=== PATIENT | male | born 1960 | race Caucasian/White ===

== ENCOUNTER 2016-11-17 09:46 | Emergency (ER) | payer MEDICAID ==
[2016-11-17] MEDS ORDERED: Sodium Chloride 0.9% 1,000 ML IV SCH (10:00)
[2016-11-17 10:12] VITALS: BP 132/80
--- NOTE | 2016-11-17 11:43 | EDM.PDOC ---
[id number] LOW KIDNEY FUNCTION Time Seen by Provider: 11/17/16 10:20 Source of Information: Reports: Patient, Family, Provider History Limitations: Reports: No Limitations - History of Present Illness INITIAL COMMENTS - FREE TEXT/NARRATIVE: 56-year-old male who has had generalized malaise, weakness, intermittent fevers over the past several weeks and into the urgent care clinic for some routine labs and evaluation. Tick disease studies were drawn as well as a CMP and CBC. The patient was started on antibiotics and was asked to follow up, however after leaving his creatinine returned 2.4 and BUN was 40 so he was asked to come to the emergency room for further treatment. He's had no nausea or vomiting. Onset: Unknown/Unsure Severity: Mild Associated Symptoms: Reports: Fever/Chills, Loss of Appetite - Related Data Allergies Allergy/AdvReac Type Severity Reaction Status Date / Time No Known Allergies Allergy Verified 11/17/16 10:20 Home Meds: Home Meds Omeprazole 40 mg PO DAILY 11/17/16 [History] Past Medical History Gastrointestinal History: Reports: GERD - Infectious Disease History Infectious Disease History: Reports: Chicken Pox - Past Surgical History GI Surgical History: Reports: Appendectomy Social & Family History - Tobacco Use Smoking Status *Q: Never Smoker - Caffeine Use Caffeine Use: Reports: None - Recreational Drug Use Recreational Drug Use: No ED ROS GENERAL - Review of Systems Review Of Systems: See Below Constitutional: Reports: Fever, Chills, Malaise, Weakness, Weight Loss HEENT: Reports: No Symptoms Respiratory: Reports: No Symptoms (A lot of times before this woman is appendicitis. This is an arm). Denies: Shortness of Breath Cardiovascular: Denies: Chest Pain, Palpitations Endocrine: Reports: Fatigue GI/Abdominal: Denies: Abdominal Pain, Diarrhea : Reports: No Symptoms Musculoskeletal: Reports: Muscle Pain (Generalized aches) Skin: Reports: No Symptoms Neurological: Reports: Headache (Intermittent) ED EXAM, GENERAL - Physical Exam Exam: See Below Exam Limited By: No Limitations General Appearance: Alert, No Apparent Distress Eye Exam: Bilateral Eye: Normal Inspection Respiratory/Chest: No Respiratory Distress Cardiovascular: Regular Rate, Rhythm GI/Abdominal: Non-Tender Extremities: Normal Inspection. No: Pedal Edema Neurological: Alert, Oriented Skin Exam: Warm, Dry Course - Vital Signs Last Recorded V/S: Last Vital Signs Temp 97.9 F 11/17/16 10:11 Pulse 59 L 11/17/16 11:56 Resp 16 11/17/16 10:11 BP 132/80 11/17/16 11:56 Pulse Ox 98 11/17/16 10:11 - Orders/Labs/Meds Labs: Laboratory Tests 11/17/16 Range/Units 11:00 Urine Color Yellow Urine Appearance Cloudy Urine pH 6.0 (4.5-8.0) Ur Specific [employer] 1.015 (1.008-1.030) Urine Protein Negative (NEGATIVE) mg/dL Urine Glucose (UA) Normal (NEGATIVE) mg/dL Urine Ketones Negative (NEGATIVE) mg/dL Urine Occult Blood Moderate (NEGATIVE) Urine Nitrite Negative (NEGAITVE) Urine Bilirubin Negative (NEGATIVE) Urine Urobilinogen Normal (NORMAL) mg/dL Ur Leukocyte Esterase Large (NEGATIVE) Urine RBC 5-10 H (0-5) Urine WBC 20-30 H (0-5) Ur Epithelial Cells Not seen Amorphous Sediment Rare Urine Bacteria Rare Urine Mucus Not seen Meds: Medications Discontinued Medications Generic Name Dose Route Start Last Admin Trade Name Sudhirq PRN Reason Stop Dose Admin Sodium Chloride 1,000 mls @ 999 mls/hr 11/17/16 10:00 11/17/16 10:00 Normal Saline IV 999 mls/hr ASDIRECTED [facility] Administration - Re-Assessments/Exams Free Text/Narrative Re-Assessment/Exam: 11/17/16 11:45 Patient was given 1 L of normal saline bolus. He is going to start the antibiotic as directed, and I encouraged him to recheck in 4 or 5 days for another creatinine and BUN. He can return anytime sooner if worsening or concerns. He also needs to make sure he stays hydrated. A UA was obtained and showed no proteinuria or glucosuria, there was some WBCs and RBCs. Specific gravity was 1.015 Departure - Departure Time of Disposition: 12:00 Disposition: Home, Self-Care 01 Condition: Good Clinical Impression: Dehydration, moderate - Discharge Information Instructions: Dehydration, Adult, [id number] Referrals: Patrick Bardales MD [Primary Care Provider] - Forms: ED Department Discharge Care Plan Goals: Push fluids, increase activity as tolerated and recheck labs next week as discussed. Take antibiotic as prescribed. Return anytime sooner if worsening or concerns.
== END 2016-11-17 12:01 | disposition home or self-care (01) ==
LOC: JP.ED 09:46
DX: E86.0 Dehydration (principal); K21.9 Gastro-esophageal reflux disease without esophagitis; Z90.49 Acquired absence of other specified parts of digestive tract; Z79.899 Other long term (current) drug therapy
CPT/HCPCS: 81001; 96360; 99285; J7040

== ENCOUNTER 2016-12-14 08:38 | Day surgery (SDC) | payer MEDICAID ==
[2016-12-14] MEDS ORDERED: Dextrose 5%-Lactated Ringers 1,000 ML IV SCH (09:15)
[2016-12-14] MEDS ORDERED: Glycopyrrolate 0.2 MG/ML 2 ML SDV IVPUSH ONE (09:15)
[2016-12-14] MEDS ORDERED: Propofol 200 MG/20 ML SDV ONE (11:00)
[2016-12-14] MEDS ORDERED: fentaNYL 100 MCG/2 ML SDV ONE (11:01)
[2016-12-14] MEDS ORDERED: Midazolam 1 MG/ML 2 ML SDV ONE (11:01)
[2016-12-14 12:49] VITALS: BP 117/83
--- NOTE | 2016-12-19 08:32 | OR ---
DATE OF PROCEDURE: 12/14/2016 PREOPERATIVE DIAGNOSES: 1. Epigastric discomfort. 2. Indications for screening colonoscopy. POSTOPERATIVE DIAGNOSES: 1. Antral gastritis and duodenitis. 2. Normal colonoscopic exam. OPERATIVE PROCEDURES: 1. Upper GI endoscopy with antral biopsies for CLOtest. 2. Flexible colonoscopy. ANESTHESIA: IV sedation. INDICATION FOR PROCEDURE: This 56-year-old male is presenting with some ongoing epigastric pain with occasionally associated nausea. By history, he does have some reflux disease, but this is not presently significantly symptomatic. He presently is on Prilosec 40 mg a day. It is notable that he takes ibuprofen with a total dose, it sounds like, around 600 mg a day. He also meets indications for screening colonoscopy. The plan will be to proceed with an upper and lower endoscopy with biopsies and/or polypectomies as indicated. Potential risks including bleeding and perforation were discussed, and the patient wishes to proceed. DETAILS OF PROCEDURE: The patient was taken to the operating room and placed in a left lateral decubitus position. IV sedation was administered, after which the upper GI endoscope was passed orally through the length of the esophagus, into the stomach with retroflexion view of the fundus, thereafter through the pyloric channel and into the junction of the third and fourth portions of the duodenum. Findings included normal hypopharynx, larynx, upper esophageal sphincter, and esophageal body. At the EG junction, no significant inflammation was present. There was no upward migration of the gastroesophageal junction, mucosal line, and there was no significant hiatal hernia. Within the proximal stomach, there was a small amount of retained bile within the distal body and antrum. There was diffuse, fairly pronounced gastritis. This inflammatory change continued into the duodenum, but beyond the duodenal bulb it normalized. There were no ulcers or erosions within either the stomach or the duodenum, but there were fairly intense gastritis and duodenitis. At this point, biopsies were obtained from the antrum and sent for CLOtest for H. pylori. Minimal bleeding from the biopsy sites was seen, and the procedure then concluded with withdrawal of the scope. Attention was then taken to the colonoscopy. Initial digital rectal exam was performed and was unremarkable. Colonoscope was then passed into the rectum with retroflexion revealing uncomplicated hemorrhoidal columns. The scope was then eventually passed to the cecum. The prep was fairly good. There were some liquid and solid stools obscuring small portions of the mucosal surface, but otherwise exam appeared to be reasonably complete. Overall, there were no abnormalities, no diverticula, no areas of colitis, and no polyps or other signs of neoplasia. The scope was then withdrawn, and the procedure then concluded. I suspect the patient's gastritis maybe related to the ibuprofen use. We will switch him over to Celebrex 200 mg a day and have him discontinue the ibuprofen. He otherwise will continue the present omeprazole dose. Without any family history of colon neoplasia or personal history of polyps, the next colonoscopy should likely be scheduled in 10 years. The patient will be following up with Dr. Bardales in [facility] in 2 to 3 weeks to see how he is doing with regard to the symptoms. One option, if he continues to have the epigastric discomfort, would be to add something like Carafate or try some other nonsteroidal anti-inflammatory medications for the arthritis, but I suspect he will likely do fairly well with the Celebrex and that would be more effective than something like Tylenol for his arthritic symptoms. Kade Allison MD /[id number]
== END 2016-12-14 13:00 | disposition home or self-care (01) ==
LOC: JP.SDS 08:38
PROVIDERS: ATTEND Surgery
DX: Z12.11 Encounter for screening for malignant neoplasm of colon (principal); K29.50 Unspecified chronic gastritis without bleeding
CPT/HCPCS: 43239; 45378; 87081; J2250; J2704; J3010; J7042; J3490

== ENCOUNTER 2020-12-16 16:14 | Emergency (ER) | payer SELFPAY ==
[2020-12-16 16:24] VITALS: BP 152/84; PULSE 61
[2020-12-16] MEDS ORDERED: Ketorolac 30 MG/ML SDV IM ONE (16:35)
--- NOTE | 2020-12-16 16:38 | EDM.PDOC ---
ED HPI GENERAL MEDICAL PROBLEM - General Chief Complaint: Gastrointestinal Problem Stated Complaint: ABD PAIN Time Seen by Provider: 12/16/20 16:31 Source of Information: Reports: Patient, Family, RN Notes Reviewed History Limitations: Reports: No Limitations - History of Present Illness INITIAL COMMENTS - FREE TEXT/NARRATIVE: 60-year-old gentleman presents emergency department day complaint of abdominal pain, he states it came on suddenly sharp and stabbing constant in nature it is predominantly in the right lower quadrant does radiate to the back he has had a past surgical history of appendicitis there is no nausea no vomiting no shortness of breath no chest pain Right Lower Abdomen Pain Score (Numeric/FACES): 9 - Related Data Allergies Allergy/AdvReac Type Severity Reaction Status Date / Time No Known Allergies Allergy Verified 12/16/20 16:32 Home Meds: Home Meds Omeprazole 40 mg PO DAILY 11/17/16 [History] Ibuprofen 200 mg PO Q6HR PRN 12/12/16 [History] predniSONE 20 mg PO DAILY 12/14/16 [History] Tamsulosin HCl [Flomax] 0.4 mg PO DAILY #20 capsule 12/16/20 [Rx] Past Medical History Gastrointestinal History: Reports: GERD Musculoskeletal History: Reports: Arthritis - Infectious Disease History Infectious Disease History: Reports: Chicken Pox - Past Surgical History Head Surgeries/Procedures: Reports: None GI Surgical History: Reports: Appendectomy Musculoskeletal Surgical History: Reports: None Dermatological Surgical History: Reports: None Social & Family History - Family History HEENT: Reports: Cataract, Hearing Impairment, Impaired Vision Cardiac: Reports: High Cholesterol, Hypertension : Reports: Renal Calculus Musculoskeletal: Reports: Arthritis Endocrine/Metabolic: Reports: None - Caffeine Use Caffeine Use: Reports: Soda ED ROS GENERAL - Review of Systems Review Of Systems: See Below Constitutional: Denies: Fever, Chills Respiratory: Reports: No Symptoms Cardiovascular: Reports: No Symptoms GI/Abdominal: Reports: Abdominal Pain, Flatus. Denies: Nausea, Vomiting : Reports: No Symptoms, Other (Tender back right side) ED EXAM, GI/ABD - Physical Exam Exam: See Below Exam Limited By: No Limitations General Appearance: Alert, Mild Distress Respiratory/Chest: No Respiratory Distress, Lungs Clear, Normal Breath Sounds, No Accessory Muscle Use, Chest Non-Tender Cardiovascular: Regular Rate, Rhythm, No Murmur GI/Abdominal Exam: Soft, Tender (Right lower quadrant) Back Exam: Normal Inspection, Full Range of Motion, CVA Tenderness (R) Course - Vital Signs Last Recorded V/S: Last Vital Signs Temp 97.0 F 12/16/20 16:38 Pulse 61 12/16/20 16:38 Resp 16 12/16/20 16:38 BP 152/84 H 12/16/20 16:38 Pulse Ox 97 12/16/20 16:38 - Orders/Labs/Meds Orders: Active Orders 24 hr Category Date Time Status Abdomen Pelvis wo Cont [CT] Stat Exams 12/16/20 16:57 Taken Meds: Medications Discontinued Medications Generic Name Dose Route Start Last Admin Trade Name Freq PRN Reason Stop Dose Admin Ketorolac Tromethamine 30 mg 12/16/20 16:35 12/16/20 16:41 Ketorolac 30 Mg/Ml Sdv IM 12/16/20 16:36 30 mg ONETIME ONE Administration Departure - Departure Time of Disposition: 17:59 Disposition: Home, Self-Care 01 Condition: Fair Clinical Impression: Nephrolithiasis - Discharge Information Prescriptions: Tamsulosin HCl [Flomax] 0.4 mg PO DAILY #20 capsule Instructions: Kidney Stones, [id number] Referrals: PCP,None [Primary Care Provider] - Forms: ED Department Discharge Additional Instructions: Use Toradol as needed for pain control, take the Flomax daily to help facilitate the passage of the stone this medication has been faxed to your pharmacy in [facility] to start tomorrow, try and strain your urine possibly you may be capture this urine and you can take it to your primary care for analysis, please followup with your primary care provider in 5-7 days if not better, please call return to the emergency department with worsening of symptoms. Sepsis Event Note (ED) - Focused Exam Vital Signs: Vital Signs Temp Pulse Resp BP Pulse Ox 12/16/20 16:38 97.0 F 61 16 152/84 H 97 12/16/20 16:23 97.0 F 61 16 152/84 H 97 - My Orders Last 24 Hours: My Active Orders 12/16/20 16:57 Abdomen Pelvis wo Cont [CT] Stat - Assessment/Plan Last 24 Hours: My Active Orders 12/16/20 16:57 Abdomen Pelvis wo Cont [CT] Stat Plan: Assessment Acuity = acute Site and laterality = nephrolithiasis right side 3 mm in size Etiology = unknown Manifestations = none Location of injury = Home Lab values = CT scan describes stone above official read radiologist pending Plan Good improvement with Toradol provided in the emergency department, prescription written for Flomax 0.4 mg 1 tablet [place] [facility] [place] Torad[place] 10 mg 1 tab p.o. every 6 hours total #20 and follow-up with primary care in 5 to 7 days if not better This note was dictated using [employer] voice recognition software please call with any questions on syntax or grammar.
--- NOTE | 2020-12-16 18:08 | CRLCT ---
For Patients: As a result of the Century Cures Act, medical imaging exams and procedure reports are released immediately into your electronic medical record. You may view this report before your referring provider. If you have questions, please contact your health care provider. INDICATION: Right flank pain. TECHNIQUE: CT of the abdomen and pelvis without intravenous contrast. Coronal and sagittal reconstructions. COMPARISON: CT of the abdomen and pelvis 09/17/2012. FINDINGS: Stable small low-attenuation lesion in the left hepatic lobe which is most likely benign. The unenhanced gallbladder, spleen, pancreas, and adrenal glands are normal in appearance. No biliary dilation. There is a 3 mm obstructing stone at the right ureterovesicular junction with mild upstream right hydroureteronephrosis (series 2, image 199). Few tiny nonobstructing renal caliceal stones bilaterally. No left hydronephrosis or ureteral dilation. The unenhanced bladder is normal in appearance. Mildly enlarged prostate gland with calcifications. No bowel dilation. Colonic diverticulosis without evidence of diverticulitis. Interval appendectomy. No intraperitoneal free air or fluid. Small fat containing umbilical hernia. Circumaortic left renal vein. No lymphadenopathy. Mild degenerative changes of the lower lumbar spine. Elevation of the right hemidiaphragm with mild right basilar atelectasis. Stable 5 mm noncalcified pulmonary nodule in the right middle lobe (series 2, image 23). This is unchanged since 2013 and should be benign. IMPRESSION: 1. 3 mm obstructing stone at the right UVJ with mild upstream right hydroureteronephrosis. 2. Interval appendectomy. Please note that all CT scans at this facility use dose modulation, iterative reconstruction, and/or weight-based dosing when appropriate to reduce radiation dose to as low as reasonably achievable. Dictated by Dulce Becerra MD @ 12/16/2020 6:07:34 PM (Electronically Signed)
== END 2020-12-16 18:26 | disposition home or self-care (01) ==
LOC: JP.ED 16:14
DX: N13.2 Hydronephrosis with renal and ureteral calculous obstruction (principal); K21.9 Gastro-esophageal reflux disease without esophagitis; Z79.899 Other long term (current) drug therapy
CPT/HCPCS: 74176; 96372; 99284; J1885